=== PATIENT | male | born 1990 | race Two or more races ===

== ENCOUNTER → 2020-08-18 | Outpatient (CLI) | payer OTHER | END | disposition home or self-care (01) | LOC: MRI 14:48 | PROVIDERS: ATTEND Physical Medicine & Rehabilitation | DX: M54.12 Radiculopathy, cervical region (principal) | CPT/HCPCS: 72141 ==

== ENCOUNTER 2021-01-20 14:38 | Outpatient (CLI) | payer OTHER | END 2021-01-20 14:50 | disposition home or self-care (01) | LOC: MRI 14:38 | PROVIDERS: ATTEND Physical Medicine & Rehabilitation | DX: M54.2 Cervicalgia (principal); M54.12 Radiculopathy, cervical region | CPT/HCPCS: 72141 ==

== ENCOUNTER 2021-02-10 09:00 | Outpatient (CLI) | payer OTHER | END 2021-02-10 09:15 | disposition home or self-care (01) | LOC: PPH VACUNA 09:00 | PROVIDERS: ATTEND Emergency Medicine Pediatric Emergency Medicine | DX: Z23 Encounter for immunization (principal) ==

== ENCOUNTER 2022-07-05 08:28 | Emergency (ER) | payer OTHER ==
[~2022-07-05] VITALS: Ht 167.6 cm; Wt 63.5 kg
[2022-07-05] MEDS ORDERED: CIPRO500 MG/5 M PO (10:10)
== END 2022-07-05 10:18 | disposition home or self-care (01) ==
LOC: ER 08:28
DX: M79.671 Pain in right foot (principal)

== ENCOUNTER 2022-07-05 13:01 | Outpatient (CLI) | payer OTHER ==
[~2022-07-05 13:01] MED LIST: CIPRO500 MG/5 M PO
== END 2022-07-05 13:05 | disposition home or self-care (01) ==
LOC: NUCLEAR 13:01
PROVIDERS: ATTEND General Practice
DX: M79.671 Pain in right foot (principal); L03.115 Cellulitis of right lower limb; R22.41 Localized swelling, mass and lump, right lower limb

== ENCOUNTER 2022-07-10 15:57 | Emergency (ER) | payer OTHER ==
[~2022-07-10] VITALS: Ht 167.6 cm; Wt 62.6 kg
== END 2022-07-10 21:24 | disposition home or self-care (01) ==
LOC: ER 15:57
DX: M10.9 Gout, unspecified (principal)

== ENCOUNTER 2023-09-22 11:57 | Emergency (ER) | payer OTHER ==
[~2023-09-22] VITALS: Ht 167.6 cm; Wt 61.2 kg
[2023-09-22] MEDS ORDERED: TRAMADOL HCL 50 MG TABLET PO ONE (12:45)
[2023-09-22 13:09] LABS: HEMATOCRIT 45.5 % (39.0-48.0); MEAN CELL VOLUME 92.9 fL (80.0-100.00); MEAN CORPUSCULAR HEMOGLOBIN 32.6 pg (27.00-32.0); MEAN CORPUSCULAR HGB CONC 35.1 g/dl (32.0-36.0); PLATELET COUNT 261 K/uL (150-450); RED CELL DISTRIBUTION WIDTH 13.2 % (11.5-14.5)
== END 2023-09-22 16:06 | disposition home or self-care (01) ==
LOC: ER 11:58
PROVIDERS: General Practice
DX: S20.211A Contusion of right front wall of thorax, initial encounter (principal); S30.1XXA Contusion of abdominal wall, initial encounter; V49.9XXA Car occupant (driver) (passenger) injured in unspecified traffic accident, initial encounter; Y93.89 Activity, other specified; Y92.413 State road as the place of occurrence of the external cause; Y99.9 Unspecified external cause status; J18.1 Lobar pneumonia, unspecified organism

== ENCOUNTER 2024-11-13 08:28 | Inpatient (IN) | payer OTHER ==
[~2024-11-13] VITALS: Ht 167.6 cm; Wt 61.7 kg
--- NOTE | 2024-11-13 08:37 | NUR ---
PACEINTE ALERTA Y ORIENTADO X3 REFIERE VENIR POR DOLOR ABDOMINAL DESDE HACE UNOSM DE JESUS. REFIERE NO PODER EVACUAR. NO REFIERE PROBLEMAS AL ORINAR.
[2024-11-13] MEDS ORDERED: FAMOTIDINE/PF 20 MG/2 ML VIAL IV PUSH STA (09:06)
[2024-11-13] MEDS ORDERED: FAMOTIDINE/PF 20 MG/2 ML VIAL ONE (09:14)
--- NOTE | 2024-11-13 09:28 | NUR ---
RN DENT ORIENTA A PACIENTE SOBRE TX MEDICO Y JESUS REFIERE ENTENDER Y ACEPTAR EL MISMO. RN PROCEDE A EXTRAER MUESTRAS DE LBA. BAJO MEDIDAS ASEPTICAS Y A CANALIZAR BAJO MEDIDAS ASEPTICAS JULIO CESAR DE EDEMA Y ERITEMA. PATENTE. PROCEDE A ADMINISTRAR MEDICAMENTO BRYNN ORDEN MEDICA BAJO MEDIDAS ASEPTICAS.
[2024-11-13 10:11] LABS: BASO % 0.3 % (0.1-1.2); EOS # 0.06 (0.04-0.54); EOS % 0.4 % (0.7-7.0); LYMPH # 1.01 (1.18-3.74); LYMPH % 6.8 % (19.3-53.1); MEAN PLATELET VOLUME 9.20 fl (9.4-12.4); MONO # 0.69 (0.24-0.82); MONO % 4.6 % (4.7-12.5); NEUT # 13.05 (1.56-6.13); NEUT % 87.5 % (34.0-71.1); RED CELL DISTRIBUTION WIDTH 12.3 % (11.6-14.4)
[2024-11-13 10:26] LABS: ERYTHROCYTE SEDIMENTATION RATE 1 mm/hr (0-15)
[2024-11-13] MEDS ORDERED: METRONIDAZOLE/SODIUM CHLORIDE 500 MG/100 ML PIGGYBACK IV STA (10:31)
[2024-11-13] MEDS ORDERED: CEFTRIAXONE SODIUM 2,000 MG VIAL IV STA (10:31)
[2024-11-13 10:43] LABS: URINE APPEARANCE Clear; URINE BILIRRUBIN Negative (NEGATIVE); URINE BLOOD Negative; URINE COLOR Yellow; URINE GLUCOSE Negative (NEGATIVE); URINE KETONE Trace (NEGATIVE); URINE LEUKOCYTE Negative; URINE NITRATE Negative; URINE PROTEIN Negative (NEGATIVE); URINE UROBILINOGEN 1.0 E.U./dl
[2024-11-13 11:09] LABS: ALT/SGPT 18.0 U/L (12-78); AST/SGOT 12.0 U/L (15-37); BILIRUBIN TOTAL 1.29 mg/dL (0.3-1.2); BUN CREA RATIO 10.0 (7.0-25.0); CREATININE SERUM 1.11 mg/dL (0.70-1.30); GFR 74.95; GLOBULINA 3.0 G/DL (2.4-3.5); GLUCOSE FASTING 96.0 mg/dL (65-100); OSMOLALITY SERUM 281.0 MOSM/KG (275-295)
[2024-11-13] MEDS ORDERED: CEFTRIAXONE SODIUM 2,000 MG VIAL ONE (11:23)
[2024-11-13] MEDS ORDERED: METRONIDAZOLE/SODIUM CHLORIDE 500 MG/100 ML PIGGYBACK IV ONE (11:23)
[2024-11-13 11:28] LABS: URINE BACTERIA 1.2 uL (0.0-1933); URINE CAST 0.29 uL (0.0-1.40); URINE EPITHELIAL CELLS 0.6 uL (0.0-38.8); URINE RBC 0.7 uL (0.0-20.8); URINE WBC 0.9 uL (0.0-23.2)
[2024-11-13] MEDS ORDERED: PANTOPRAZOLE SODIUM 40 MG/VIAL VIAL IV PUSH STA (13:42)
[2024-11-13] MEDS ORDERED: ONDANSETRON HCL 2 MG/ML VIAL IV STA (13:42)
[2024-11-13] MEDS ORDERED: ONDANSETRON HCL 2 MG/ML VIAL ONE ×2 (14:04→17:43)
[2024-11-13] MEDS ORDERED: PIPERACILLIN/TAZOBACTAM SODIUM 3.375 GM in 0.9 % SODIUM CHLORIDE 100 ML IV SCH (14:32)
[2024-11-13] MEDS ORDERED: 0.9 % SODIUM CHLORIDE 1,000 ML IV SCH (14:45)
[2024-11-13] MEDS ORDERED: ONDANSETRON HCL 4 MG in 0.9 % SODIUM CHLORIDE 50 ML IV PRN (14:45)
[2024-11-13] MEDS ORDERED: MORPHINE SULFATE 4 MG/ML CARTRIDGE IV PRN (14:45)
[2024-11-13] MEDS ORDERED: PIPERACILLIN/TAZOBACTAM SODIUM 3.375 GM VIAL IV ONE (15:27)
[2024-11-13 16:48] LABS: INR 1.02
[2024-11-13] MEDS ORDERED: SUGAMMADEX SODIUM 200 MG/2 ML VIAL IV ONE (19:45)
[2024-11-13 22:48] VITALS: BP 114/76; O2SAT 96
[2024-11-14 01:27] VITALS: BP 108/69; O2SAT 100
[2024-11-14 08:23] VITALS: BP 99/64; O2SAT 97
[2024-11-14 14:50] VITALS: BP 111/76
[2024-11-14 16:00] VITALS: BP 118/75; O2SAT 96
[2024-11-14] MEDS ORDERED: SODIUM CL 0.9% 100 ML IV.SOLN IV ONE (22:22)
[2024-11-15 02:28] VITALS: BP 103/66; O2SAT 94
[2024-11-15 06:20] LABS: BASO % 0.3 % (0.1-1.2); EOS # 0.06 (0.04-0.54); EOS % 0.6 % (0.7-7.0); LYMPH # 1.61 (1.18-3.74); LYMPH % 17.2 % (19.3-53.1); MEAN PLATELET VOLUME 9.50 fl (9.4-12.4); MONO # 0.71 (0.24-0.82); MONO % 7.6 % (4.7-12.5); NEUT # 6.93 (1.56-6.13); NEUT % 74.1 % (34.0-71.1); RED CELL DISTRIBUTION WIDTH 12.0 % (11.6-14.4)
[2024-11-15 07:33] LABS: BUN CREA RATIO 8.0 (7.0-25.0); CREATININE SERUM 1.01 mg/dL (0.70-1.30); GFR 83.58; GLUCOSE FASTING 87.0 mg/dL (65-100); OSMOLALITY SERUM 285.0 MOSM/KG (275-295)
[2024-11-15 08:00] VITALS: BP 98/60; O2SAT 96
[2024-11-15] MEDS ORDERED: CIPRO500 MG PO (09:16)
[2024-11-15] MEDS ORDERED: NASAL MIST126 ML NASAL (09:17)
[2024-11-15] MEDS ORDERED: METRONIDAZOLE500 MG PO (09:17)
== END 2024-11-15 12:44 | disposition home or self-care (01) | DRG 399 ==
LOC: ER 08:28 → SURH 14:40 → SEC-K 14:40 → SURH 15:51
PROVIDERS: General Practice; Internal Medicine; Specialist; ADMIT Internal Medicine; ATTEND Internal Medicine
PROC: BW21YZZ Computerized Tomography (CT Scan) of Abdomen and Pelvis using Other Contrast (ICD-10-PCS; 2024-11-13)
PROC: 0DTJ4ZZ Resection of Appendix, Percutaneous Endoscopic Approach (ICD-10-PCS; principal; 2024-11-13 16:15)
DX: K35.890 Other acute appendicitis without perforation or gangrene (principal)